=== PATIENT | female | born 1985 | race American Indian/Alaskan Native ===

== ENCOUNTER 2017-01-24 13:05 | Emergency (ER) | payer MEDICAID ==
[2017-01-24 15:22] LABS: Bilirubin,Urine NEG (Negative); Blood,Urine NEG (Negative); Ketones,Urine NEG (Negative); Leukocyte Esterase,Urine NEG (Negative); Mucus,Urine FEW /HPF; Nitrite,Urine NEG (Negative); Protein,Urine <15 mg/dL mg/dL (Negative); RBC,Urine < 1.0 /HPF (0.0-6.0); Urobilinogen,Urine < 2.0 mg/dL (<2.0)
[2017-01-24 15:42] LABS: Basophils % (Auto) 0.3 % (0.0-1.8); Eosinophils % (Auto) 1.6 % (0.0-4.3); Hematocrit 39.5 % (30.3-42.9); Hemoglobin 12.8 gm/dl (10.1-14.3); Mean Corpuscular HGB Conc 32 % (30-34); Mean Corpuscular Hemoglobin 31 pg (28-32); Mean Corpuscular Volume 94 fl (79-97); Platelet Count 169 K/mm3 (140-440); Red Cell Distribution Width 13.4 % (13.2-15.2); White Blood Count 6.3 K/mm3 (4.5-11.0)
[2017-01-24 18:07] LABS: Alanine Aminotransferase 26 units/L (7-56); Albumin 3.8 g/dL (3.9-5); Albumin/Globulin Ratio 1.2 %; Alkaline Phosphatase 48 units/L (35-129); Anion Gap 16 mmol/L; BUN/Creatinine Ratio 13.33; Bilirubin,Total 0.2 mg/dL (0.1-1.2); Blood Urea Nitrogen 8 mg/dL (7-17); Calcium 9.1 mg/dL (8.4-10.2); Carbon Dioxide 21 mmol/L (22-30); Chloride 99.3 mmol/L (98-107); Glucose 85 mg/dL (65-100); Potassium 3.7 mmol/L (3.6-5.0); Sodium 133 mmol/L (137-145); Total Protein 6.9 g/dL (6.3-8.2)
--- NOTE | 2017-01-24 19:40 | Ultrasound Report ---
FINAL REPORT PROCEDURE: US OB \T\lt; = 14 WEEKS FETUS TECHNIQUE: Real-time transabdominal and transvaginal sonography of the uterus, placenta, amniotic fluid, adnexa, and fetus was performed with image documentation. Measurements were obtained to determine age/size. M-mode Doppler was used to document heartbeat. CPT 35296 and 06577 HISTORY: Pain. COMPARISON: No prior studies are available for comparison. FINDINGS: LMP: 11/14/2016. Clinical age: 10 weeks 1 day. EDC: 08/21/2017. CRL: 33.1 mm, which corresponds to a gestational age of: 10 weeks, 1 day. Yolk Sac: Normal. Embryonic Cardiac Activity: 160 beats per minute. Gestational Sac: Normal. Amniotic fluid: Normal. Cervix: Normal. Not measured by technologist. Uterus: 15.5 x 8.1 x 9.7 centimeters. Right Ovary: 3.2 x 2.0 x 3.1 centimeters. 1.9 centimeter hypoechoic complex lesion. Normal flow. Left Ovary: Only visualized transabdominally. 2.3 x 2.0 x 2.8 centimeters. Flow not assessed. Estimated delivery date: 08/21/2017. IMPRESSION: 1. Single live intrauterine gestation at approximately 10 weeks, 1 day. 2. EDC by US 08/21/2017. 3. Complete anatomic survey at 18-20 weeks suggested. At this time complex hypoechoic right ovarian lesion, likely cyst, can be re-evaluated.
--- NOTE | 2017-01-24 19:43 | Ultrasound Report ---
FINAL REPORT PROCEDURE: US OB \T\lt; = 14 WEEKS FETUS TECHNIQUE: Real-time transabdominal and transvaginal sonography of the uterus, placenta, amniotic fluid, adnexa, and fetus was performed with image documentation. Measurements were obtained to determine age/size. M-mode Doppler was used to document heartbeat. CPT 94484 and 15799 HISTORY: Pain. COMPARISON: No prior studies are available for comparison. FINDINGS: LMP: 11/14/2016. Clinical age: 10 weeks 1 day. EDC: 08/21/2017. CRL: 33.1 mm, which corresponds to a gestational age of: 10 weeks, 1 day. Yolk Sac: Normal. Embryonic Cardiac Activity: 160 beats per minute. Gestational Sac: Normal. Amniotic fluid: Normal. Cervix: Normal. Not measured by technologist. Uterus: 15.5 x 8.1 x 9.7 centimeters. Right Ovary: 3.2 x 2.0 x 3.1 centimeters. 1.9 centimeter hypoechoic complex lesion. Normal flow. Left Ovary: Only visualized transabdominally. 2.3 x 2.0 x 2.8 centimeters. Flow not assessed. Estimated delivery date: 08/21/2017. IMPRESSION: 1. Single live intrauterine gestation at approximately 10 weeks, 1 day. 2. EDC by US 08/21/2017. 3. Complete anatomic survey at 18-20 weeks suggested. At this time complex hypoechoic right ovarian lesion, likely complex cyst, can be re-evaluated.
[2017-01-25] MEDS ORDERED: NACL 0.9% 1000 ML 1,000 ML IV ONE (01:58)
[2017-01-25] MEDS ORDERED: TYLENOL PO ONE (02:27)
--- NOTE | 2017-01-25 04:02 | Emergency Department Report ---
ED HPI - General Chief complaint: Urogenital-Female Stated complaint: POSS ECTOPIC Time Seen by Provider: 01/25/17 01:56 Source: patient Mode of arrival: Ambulatory Limitations: No Limitations - History of Present Illness Initial comments: 31-year-old female with a past medical history of ectopic presents to the hospital complaints of and abdominal pain. LMP 11/18/2016. Patient has not yet initiated care but plans to follow-up cycle [facility]. Patient has intermittent sharp lower pelvic pain that radiates from the left to the right. Positive associated whitish and was discharged. Some positive pelvic pressure with urination. Pain moderate in intensity. Worsen palpation. No specific alleviating factors. No reports of fever or vomiting. Patient has a history of ectopic in 2014 treated with methotrexate. This is the patient's fourth . Patient denies vaginal bleeding. - Related Data Previous Rx's Medication Instructions Recorded Last Taken Type Vit W-Ca,Fe,FA(<1 mg) 1 each PO DAILY #30 tablet 01/25/17 Unknown Rx [ Vitamins] Allergies Allergy/AdvReac Type Severity Reaction Status Date / Time No Known Allergies Allergy Verified 01/24/17 13:50 ED Review of Systems ROS: Stated complaint: POSS ECTOPIC Other details as noted in HPI Comment: All other systems reviewed and negative Other: Constitutional: No fevers chills Eyes: No eye pain visual changes ENT: No ear pain or throat pain Neck: Denies pain Respiratory: Denies cough wheezing shortness of breath Cardiovascular: Denies chest pain, palpitations, syncope GI: as per hpi :as per hpi Musculoskeletal: Denies back pain Skin: Denies rash, lesions, erythema Neurologic: Denies headache, numbness, weakness Psychiatric: Denies suicidal ideation, hallucinations ED Past Medical Hx - Past Medical History Hx Psychiatric Treatment: Yes (Anxiety attacks) Additional medical history: heart palpitations. ECTOPIC - Surgical History Past Surgical History?: No Additional Surgical History: ectopic - Social History Smoking Status: Never Smoker Substance Use Type: Alcohol - Medications Home Medications: Home Medications Medication Instructions Recorded Confirmed Last Taken Type Vit W-Ca,Fe,FA(<1 mg) 1 each PO DAILY #30 tablet 01/25/17 Unknown Rx [ Vitamins] ED Physical Exam - General Limitations: No Limitations - Other Other exam information: General: No limitations, patient is alert in no acute distress Head exam: Atraumatic, normocephalic Eyes exam: Normal appearance ENT: Moist mucous membrane, normal oropharynx Neck exam: Normal inspection, full range of motion, no meningismus nontender Respiratory exam: Clear to auscultation bilateral, no wheezes, rales, crackles Cardiovascular: Normal rate and rhythm, normal heart sounds Abdomen: Soft, nondistended, mild superpubic tenderness, with normal bowel sounds, no rebound, or guarding : White vaginal discharge without CMT or adnexal tenderness. Cervical os closed Extremity: Full range of motion normal inspection no deformity Back: Normal Inspection, full range of motion, no tenderness Neurologic: Alert, oriented x3, cranial nerves intact, no motor or sensory deficit Psychiatric: normal affect, normal mood Skin: Warm, dry, intact ED Course Vital Signs 01/24/17 01/25/17 13:53 00:13 Temperature 98.9 F Pulse Rate 94 H 84 Respiratory 17 14 Rate Blood Pressure 124/70 109/75 O2 Sat by Pulse 100 100 Oximetry - Reevaluation(s) Reevaluation #1: 01/25/17 04:00 Patient treated with Tylenol and 1 L normal saline for mild hyponatremia and hypochloremia ED Medical Decision Making - Lab Data Result diagrams: 01/24/17 15:25 01/24/17 17:01 Lab Results 01/24/17 01/24/17 01/24/17 Range/Units 15:25 15:25 17:01 WBC 6.3 (4.5-11.0) K/mm3 RBC 4.20 (3.65-5.03) M/mm3 Hgb 12.8 (10.1-14.3) gm/dl Hct 39.5 (30.3-42.9) % MCV 94 (79-97) fl MCH 31 (28-32) pg MCHC 32 (30-34) % RDW 13.4 (13.2-15.2) % Plt Count 169 (140-440) K/mm3 Lymph % (Auto) 35.2 H (13.4-35.0) % [place] % (Auto) 10.5 H (0.0-7.3) % Eos % (Auto) 1.6 (0.0-4.3) % Baso % (Auto) 0.3 (0.0-1.8) % Lymph # 2.2 (1.2-5.4) K/mm3 [place] # 0.7 (0.0-0.8) K/mm3 Eos # 0.1 (0.0-0.4) K/mm3 Baso # 0.0 (0.0-0.1) K/mm3 Seg Neutrophils % 52.4 (40.0-70.0) % Seg Neutrophils # 3.3 (1.8-7.7) K/mm3 Sodium 133 L (137-145) mmol/L Potassium 3.7 (3.6-5.0) mmol/L Chloride 99.3 (98-107) mmol/L Carbon Dioxide 21 L (22-30) mmol/L Anion Gap 16 mmol/L BUN 8 (7-17) mg/dL Creatinine 0.6 L (0.7-1.2) mg/dL Estimated GFR > 60 ml/min BUN/Creatinine Ratio 13.33 % Glucose 85 (65-100) mg/dL Calcium 9.1 (8.4-10.2) mg/dL Total Bilirubin 0.2 (0.1-1.2) mg/dL AST 17 (5-40) units/L ALT 26 (7-56) units/L Alkaline Phosphatase 48 (35-129) units/L Total Protein 6.9 (6.3-8.2) g/dL Albumin 3.8 L (3.9-5) g/dL Albumin/Globulin Ratio 1.2 % HCG, Quant 04878 H (0-4) mIU/mL Urine Color (Yellow) Urine Turbidity (Clear) Urine pH (5.0-7.0) Ur Specific [place] (1.003-1.030) Urine Protein (Negative) mg/dL Urine Glucose (UA) (Negative) mg/dL Urine Ketones (Negative) mg/dL Urine Blood (Negative) Urine Nitrite (Negative) Urine Bilirubin (Negative) Urine Urobilinogen (<2.0) mg/dL Ur Leukocyte Esterase (Negative) Urine WBC (Auto) (0.0-6.0) /HPF Urine RBC (Auto) (0.0-6.0) /HPF U Epithel Cells (Auto) (0-13.0) /HPF Urine Mucus /HPF 01/24/17 Range/Units Unknown WBC (4.5-11.0) K/mm3 RBC (3.65-5.03) M/mm3 Hgb (10.1-14.3) gm/dl Hct (30.3-42.9) % MCV (79-97) fl MCH (28-32) pg MCHC (30-34) % RDW (13.2-15.2) % Plt Count (140-440) K/mm3 Lymph % (Auto) (13.4-35.0) % [place] % (Auto) (0.0-7.3) % Eos % (Auto) (0.0-4.3) % Baso % (Auto) (0.0-1.8) % Lymph # (1.2-5.4) K/mm3 [place] # (0.0-0.8) K/mm3 Eos # (0.0-0.4) K/mm3 Baso # (0.0-0.1) K/mm3 Seg Neutrophils % (40.0-70.0) % Seg Neutrophils # (1.8-7.7) K/mm3 Sodium (137-145) mmol/L Potassium (3.6-5.0) mmol/L Chloride (98-107) mmol/L Carbon Dioxide (22-30) mmol/L Anion Gap mmol/L BUN (7-17) mg/dL Creatinine (0.7-1.2) mg/dL Estimated GFR ml/min BUN/Creatinine Ratio % Glucose (65-100) mg/dL Calcium (8.4-10.2) mg/dL Total Bilirubin (0.1-1.2) mg/dL AST (5-40) units/L ALT (7-56) units/L Alkaline Phosphatase (35-129) units/L Total Protein (6.3-8.2) g/dL Albumin (3.9-5) g/dL Albumin/Globulin Ratio % HCG, Quant (0-4) mIU/mL Urine Color Yellow (Yellow) Urine Turbidity Clear (Clear) Urine pH 6.0 (5.0-7.0) Ur Specific [place] 1.016 (1.003-1.030) Urine Protein <15 mg/dl (Negative) mg/dL Urine Glucose (UA) Neg (Negative) mg/dL Urine Ketones Neg (Negative) mg/dL Urine Blood Neg (Negative) Urine Nitrite Neg (Negative) Urine Bilirubin Neg (Negative) Urine Urobilinogen < 2.0 (<2.0) mg/dL Ur Leukocyte Esterase Neg (Negative) Urine WBC (Auto) 1.0 (0.0-6.0) /HPF Urine RBC (Auto) < 1.0 (0.0-6.0) /HPF U Epithel Cells (Auto) 2.0 (0-13.0) /HPF Urine Mucus Few /HPF - Radiology Data Radiology results: report reviewed Pelvic/transvaginal ultrasound: Single live IUP 10 weeks. heart 160. Right ovarian lesion likely cyst. - Medical Decision Making Patient received 1 L normal saline for mild hyponatremia. She will be treated with Tylenol for pain. UA is wet prep negative for infection. Patient was treated symptomatically with Tylenol, vitamins, encouraged to follow- up with [facility] to initiate her care. - Differential Diagnosis ectopic, vaginitis, cervicitis , ovarian cyst Critical Care Time: No Critical care attestation.: If time is entered above; I have spent that time in minutes in the direct care of this critically ill patient, excluding procedure time. ED Disposition Clinical Impression: 10 weeks gestation of , Right ovarian cyst, Pelvic pain Disposition: DISCHARGED TO HOME OR SELFCARE Is pt being admited?: No Does the pt Need Aspirin: No Condition: Stable Instructions: Abdominal Pain in (ED), Ovarian Cyst (ED) Additional Instructions: Take the vitamins as prescribed. Take Tylenol as needed for pain. Follow-up with your [facility] doctor. Return if symptoms worsen.Your gonorrhea and chlamydia tests are pending and take approximately 3-4 days result. You may obtain results in medical records with a photo ID. You may also obtain results through the follow-up doctor office via medical record request. Prescriptions: Vit W-Ca,Fe,FA(<1 mg) [ Vitamins] 1 each PO DAILY #30 tablet Referrals: [facility] [Provider Group] - 3-5 Days Time of Disposition: 04:05
[2017-01-25 04:48] VITALS: BP 109/56
== END 2017-01-25 04:56 | disposition home or self-care (01) ==
LOC: ED 13:05
DX: O26.891 Other specified pregnancy related conditions, first trimester (principal); N83.201 Unspecified ovarian cyst, right side; F41.9 Anxiety disorder, unspecified; Z3A.10 10 weeks gestation of pregnancy
CPT/HCPCS: 36415; 76801; 76817; 80053; 81001; 84702; 85025; 87210; 87591; 96360; 99285; J7030

== ENCOUNTER 2017-08-24 01:56 | Inpatient (IN) | payer MEDICAID ==
[2017-08-24] MEDS: LACTATED RINGERS 1,000 ML IV SCH ×4 (03:35→07:26)
[2017-08-24] MEDS ORDERED: POLYCILLIN/NS 2 GM/100 ML 2 GM/100 ML BAG IV ONE ×2 (03:35→03:36)
[2017-08-24] MEDS ORDERED: LACTATED RINGERS 1,000 ML ONE ×2 (03:36)
[2017-08-24] MEDS ORDERED: STADOL ONE (04:09)
[2017-08-24 04:15] LABS: Hematocrit 31.9 % (30.3-42.9); Hemoglobin 10.3 gm/dl (10.1-14.3); Mean Corpuscular HGB Conc 32 % (30-34); Mean Corpuscular Hemoglobin 27 pg (28-32); Mean Corpuscular Volume 85 fl (79-97); Platelet Count 122 K/mm3 (140-440); Red Blood Count 3.76 M/mm3 (3.65-5.03); Red Cell Distribution Width 17.1 % (13.2-15.2); White Blood Count 6.2 K/mm3 (4.5-11.0)
[2017-08-24] MEDS ORDERED: XYLOCAINE 2% INFILTRATI ONE (04:30)
[2017-08-24] MEDS ORDERED: BRETHINE SUB-Q PRN (04:30)
[2017-08-24] MEDS ORDERED: STADOL IV PRN (04:30)
[2017-08-24] MEDS ORDERED: ePHEDrine SULFATE IV PRN ×2 (04:30→05:49)
[2017-08-24] MEDS ORDERED: BRETHINE IVP PRN (04:30)
[2017-08-24] MEDS ORDERED: MINERAL OIL PO PRN (04:30)
[2017-08-24] MEDS ORDERED: PITOCin/NS 20 UNIT/1000ML DRIP 20 UNITS/1,000 ML BAG IV SCH (05:00)
--- NOTE | 2017-08-24 05:05 | History and Physical Report ---
History of Present Illness Date of examination: 08/24/17 Date of admission: 08/24/17 03:12 Chief complaint: Intense Labor Pains History of present illness: Late entry to care, co-mansoor with [facility] due to morbid obesity. course complicated by chest pain, wrist pain, and +HSV II. Past History Past Medical History: no pertinent history Past Surgical History: no surgical history [employer] History: chlamydia, herpes Family/Genetic History: none Social history: no significant social history, single - Obstetrical History Expected Date of Delivery: 08/21/17 Actual Gestation: 40 Week(s) 3 Day(s) : 4 Para: 2 Hx # Term Pregnancies: 2 Spontaneous Abortions: 1 Number of Living Children: 2 #1 Infant Gender: Female year: ,[birth year] Birthweight: 3.345 kg Method of Delivery: Vaginal Gestational age at delivery: 40 #2 Infant Gender: Male year: ,[birth year] Birthweight: 3.544 kg Method of Delivery: Vaginal Gestational age at delivery: 40 Medications and Allergies Allergies Allergy/AdvReac Type Severity Reaction Status Date / Time No Known Allergies Allergy Verified 01/24/17 13:50 Home Medications Medication Instructions Recorded Confirmed Last Taken Type Vit Calc,Iron,Folic 1 each PO DAILY #30 tablet 01/25/17 Unknown Rx [ Vitamins] Active Meds: Active Medications Butorphanol Tartrate (Stadol) 2 mg IV Q2H PRN PRN Reason: Pain , Severe (7-10) Last Admin: 08/24/17 04:23 Dose: 2 mg Lactated Ringer's (Lactated Ringers) 1,000 mls @ 125 mls/hr IV DIRECT KAREN Last Admin: 08/24/17 03:35 Dose: 125 mls/hr Oxytocin/Sodium Chloride (Pitocin/Ns 20 Unit/1000ml Drip) 20 units in 1,000 mls @ 125 mls/hr IV DIRECT KAREN Oxytocin/Sodium Chloride (Pitocin/Ns 30 Unit/500ml) 30 units in 500 mls @ 4 mls /hr IV TITR KAREN PRN Reason: Protocol Mineral Oil (Mineral Oil) 30 ml PO QHS PRN PRN Reason: Constipation Review of Systems All systems: negative - Vital Signs Vital signs: Vital Signs Pulse BP Pulse Ox 70 113/71 95 08/24/17 02:15 08/24/17 02:15 08/24/17 02:15 Temp Pulse Resp BP Pulse Ox 98.1 F 76 20 110/57 98 08/24/17 03:20 08/24/17 04:13 08/24/17 04:23 08/24/17 03:32 08/24/17 04:13 - Obstetrical FHR: category 1 Uterine Contraction Monitor Mode: Internal Cervical Dilatation: 5.5 (Large amount of brown meconium stained fluids upon AROM at 0425) Cervical Effacement Percentage: 70 station: -2 Uterine Contraction Frequency (min): 4-6 Uterine Contraction Pattern: Regular Uterine Tone Measurement Phase: Resting Uterine Contraction Intensity: Moderate Results Result Diagrams: 08/24/17 03:30 Abnormal lab results 08/24/17 Range/Units 03:30 MCH 27 L (28-32) pg RDW 17.1 H (13.2-15.2) % Plt Count 122 L (140-440) K/mm3 All other labs normal. Assessment and Plan A: IUP @40 3/7 Weeks Category I Tracing Active Labor GBS Positive P: Admit to L&D per routine orders AROM IUPC GBS Prophylaxis Pitocin Augmentation Prepare for Epidural Anesthesia
[2017-08-24] MEDS ORDERED: ePHEDrine SULFATE ONE (05:17)
[2017-08-24] MEDS ORDERED: NARCAN 2 MG/2 ML IV PRN (05:49)
--- NOTE | 2017-08-24 05:49 | Anesthesia Consultation ---
Anesthesia Consult and Med Hx Date of service: 08/24/17 - Airway Anesthetic Teeth Evaluation: Good ROM Head & Neck: Adequate Mental/Hyoid Distance: Adequate Mallampati Class: Class II Intubation Access Assessment: Probably Good - Pulmonary Exam CTA: Yes - Cardiac Exam Cardiac Exam: RRR - Pre-Operative Health Status ASA Pre-Surgery Classification: ASA2 Proposed Anesthetic Plan: Epidural, Spinal - Pulmonary Hx Asthma: No Hx Pneumonia: No - Cardiovascular System Hx Hypertension: No - Central Nervous System Hx Seizures: No Hx Psychiatric Problems: No - Endocrine Hx Renal Disease: No Hx End Stage Renal Disease: No Hx Hypothyroidism: No Hx Hyperthyroidism: No - Hematic Hx Anemia: No Hx Sickle Cell Disease: No - Other Systems Hx Alcohol Use: Yes Hx Obesity: Yes - Additional Comments Anesthesia Medical History Comments: IUP
[2017-08-24] MEDS ORDERED: fentaNYL-BUPIV 2 MCG/ML-0.125% 200 MCG/100 ML BAG EPIDURAL SCH (06:00)
[2017-08-24] MEDS: PITOCin/NS 30 UNIT/500ML 30 UNITS/500 ML BAG IV SCH ×3 (06:18→10:47)
[2017-08-24] MEDS ORDERED: NACL 0.9% 1000 ML 1,000 ML VG SCH (07:00)
[2017-08-24] MEDS: POLYCILLIN/NS 1 GM/50 ML 1 GM/50 ML BAG IV SCH ×2 (07:44→11:14)
--- NOTE | 2017-08-24 10:34 | Progress Note ---
Assessment and Plan A: IUP @40 3/7 Weeks Category II Tracing Active Labor GBS Positive P: Continue GBS Prophylaxis Re-start Pitocin Augmentation Multiple Maternal Position Changes Subjective - Subjective Date of service: 08/24/17 Interval history: Late entry to care, co-mansoor with [facility] due to morbid obesity. course complicated by chest pain, wrist pain, and +HSV II. Patient reports: contractions Objective - Vital Signs Vital Signs: Vital Signs - 12hr 08/24/17 08/24/17 08/24/17 02:15 02:20 02:25 Temperature Pulse Rate 70 74 73 Respiratory Rate Blood Pressure 113/71 Blood Pressure [Left] O2 Sat by Pulse 95 98 98 Oximetry 08/24/17 08/24/17 08/24/17 02:30 02:35 02:40 Temperature Pulse Rate 70 75 76 Respiratory Rate Blood Pressure Blood Pressure [Left] O2 Sat by Pulse 98 98 97 Oximetry 08/24/17 08/24/17 08/24/17 02:45 02:50 02:55 Temperature Pulse Rate 68 67 73 Respiratory Rate Blood Pressure Blood Pressure [Left] O2 Sat by Pulse 97 97 99 Oximetry 08/24/17 08/24/17 08/24/17 03:00 03:05 03:10 Temperature Pulse Rate 60 66 64 Respiratory Rate Blood Pressure Blood Pressure [Left] O2 Sat by Pulse 98 97 97 Oximetry 08/24/17 08/24/17 08/24/17 03:20 03:32 03:33 Temperature 98.1 F Pulse Rate 73 73 78 Respiratory 20 Rate Blood Pressure 110/57 Blood Pressure [Left] O2 Sat by Pulse 99 Oximetry 08/24/17 08/24/17 08/24/17 03:38 03:43 03:48 Temperature Pulse Rate 86 82 73 Respiratory Rate Blood Pressure Blood Pressure [Left] O2 Sat by Pulse 95 99 97 Oximetry 08/24/17 08/24/17 08/24/17 03:53 03:58 04:03 Temperature Pulse Rate 78 77 79 Respiratory Rate Blood Pressure Blood Pressure [Left] O2 Sat by Pulse 97 97 98 Oximetry 08/24/17 08/24/17 08/24/17 04:08 04:13 04:23 Temperature Pulse Rate 73 76 Respiratory 20 Rate Blood Pressure Blood Pressure [Left] O2 Sat by Pulse 97 98 Oximetry 08/24/17 08/24/17 08/24/17 04:57 05:25 05:27 Temperature 97.9 F Pulse Rate 60 82 Respiratory 22 Rate Blood Pressure 114/55 Blood Pressure [Left] O2 Sat by Pulse 88 99 Oximetry 08/24/17 08/24/17 08/24/17 05:32 05:36 05:37 Temperature Pulse Rate 86 79 69 Respiratory Rate Blood Pressure 113/74 Blood Pressure [Left] O2 Sat by Pulse 99 99 Oximetry 08/24/17 08/24/17 08/24/17 05:40 05:42 05:44 Temperature Pulse Rate 76 77 88 Respiratory Rate Blood Pressure 116/64 121/68 137/69 Blood Pressure [Left] O2 Sat by Pulse 99 Oximetry 08/24/17 08/24/17 08/24/17 05:46 05:47 05:48 Temperature Pulse Rate 76 79 80 Respiratory Rate Blood Pressure 116/60 118/62 Blood Pressure [Left] O2 Sat by Pulse 98 Oximetry 08/24/17 08/24/17 08/24/17 05:50 05:52 05:56 Temperature Pulse Rate 83 89 80 Respiratory Rate Blood Pressure 128/62 126/58 Blood Pressure [Left] O2 Sat by Pulse 98 Oximetry 08/24/17 08/24/17 08/24/17 05:57 05:58 06:00 Temperature Pulse Rate 86 88 78 Respiratory Rate Blood Pressure 124/60 120/61 Blood Pressure [Left] O2 Sat by Pulse 96 Oximetry 08/24/17 08/24/17 08/24/17 06:02 06:04 06:05 Temperature 97.4 F L Pulse Rate 94 H 78 Respiratory 18 Rate Blood Pressure 117/58 109/53 Blood Pressure [Left] O2 Sat by Pulse 97 Oximetry 08/24/17 08/24/17 08/24/17 06:06 06:07 06:08 Temperature Pulse Rate 75 76 75 Respiratory Rate Blood Pressure 124/58 110/56 Blood Pressure [Left] O2 Sat by Pulse 98 Oximetry 08/24/17 08/24/17 08/24/17 06:10 06:12 06:17 Temperature Pulse Rate 80 92 H 93 H Respiratory Rate Blood Pressure 112/59 Blood Pressure [Left] O2 Sat by Pulse 98 99 Oximetry 08/24/17 08/24/17 08/24/17 06:22 06:27 06:32 Temperature Pulse Rate 84 69 70 Respiratory Rate Blood Pressure 101/54 Blood Pressure [Left] O2 Sat by Pulse 99 97 97 Oximetry 08/24/17 08/24/17 08/24/17 06:36 06:37 06:42 Temperature Pulse Rate 87 82 72 Respiratory Rate Blood Pressure Blood Pressure [Left] O2 Sat by Pulse 64 L 100 100 Oximetry 08/24/17 08/24/17 08/24/17 06:44 06:47 06:49 Temperature Pulse Rate 65 58 L 75 Respiratory Rate Blood Pressure 112/58 Blood Pressure [Left] O2 Sat by Pulse 100 92 Oximetry 08/24/17 08/24/17 08/24/17 06:52 06:55 06:57 Temperature Pulse Rate 64 77 64 Respiratory Rate Blood Pressure 103/54 Blood Pressure [Left] O2 Sat by Pulse 100 100 Oximetry 08/24/17 08/24/17 08/24/17 06:59 07:02 07:05 Temperature Pulse Rate 68 91 H 81 Respiratory Rate Blood Pressure 93/52 95/51 121/59 Blood Pressure [Left] O2 Sat by Pulse 100 Oximetry 08/24/17 08/24/17 08/24/17 07:07 07:09 07:11 Temperature Pulse Rate 86 90 81 Respiratory Rate Blood Pressure 111/58 105/58 103/55 Blood Pressure [Left] O2 Sat by Pulse 100 Oximetry 08/24/17 08/24/17 08/24/17 07:12 07:13 07:15 Temperature Pulse Rate 75 68 87 Respiratory Rate Blood Pressure 99/55 102/51 Blood Pressure [Left] O2 Sat by Pulse 100 Oximetry 08/24/17 08/24/17 08/24/17 07:17 07:19 07:21 Temperature 96.5 F L Pulse Rate 84 76 83 Respiratory 16 Rate Blood Pressure 105/55 101/56 95/51 Blood Pressure 100/57 [Left] O2 Sat by Pulse 10 L Oximetry 08/24/17 08/24/17 08/24/17 07:22 07:23 07:25 Temperature Pulse Rate 70 73 76 Respiratory Rate Blood Pressure 100/57 103/58 Blood Pressure [Left] O2 Sat by Pulse 100 Oximetry 08/24/17 08/24/17 08/24/17 07:27 07:29 07:31 Temperature Pulse Rate 82 83 77 Respiratory Rate Blood Pressure 103/56 108/57 106/55 Blood Pressure [Left] O2 Sat by Pulse 100 Oximetry 08/24/17 08/24/17 08/24/17 07:32 07:33 07:35 Temperature Pulse Rate 78 83 83 Respiratory Rate Blood Pressure 103/59 96/54 Blood Pressure [Left] O2 Sat by Pulse 100 Oximetry 08/24/17 08/24/17 08/24/17 07:37 07:39 07:41 Temperature Pulse Rate 94 H 90 88 Respiratory Rate Blood Pressure 108/58 105/61 107/60 Blood Pressure [Left] O2 Sat by Pulse 100 Oximetry 08/24/17 08/24/17 08/24/17 07:42 07:43 07:45 Temperature Pulse Rate 71 77 76 Respiratory Rate Blood Pressure 106/58 108/55 Blood Pressure [Left] O2 Sat by Pulse 100 Oximetry 08/24/17 08/24/17 08/24/17 07:47 07:49 07:51 Temperature Pulse Rate 92 H 82 82 Respiratory Rate Blood Pressure 99/50 103/58 105/57 Blood Pressure [Left] O2 Sat by Pulse 100 Oximetry 08/24/17 08/24/17 08/24/17 07:52 07:53 07:55 Temperature Pulse Rate 78 76 85 Respiratory Rate Blood Pressure 106/58 96/52 Blood Pressure [Left] O2 Sat by Pulse 100 Oximetry 08/24/17 08/24/17 08/24/17 07:57 07:59 08:01 Temperature Pulse Rate 69 91 H 81 Respiratory Rate Blood Pressure 98/53 102/50 103/59 Blood Pressure [Left] O2 Sat by Pulse 100 Oximetry 08/24/17 08/24/17 08/24/17 08:02 08:03 08:05 Temperature Pulse Rate 100 H 105 H 81 Respiratory Rate Blood Pressure 99/56 112/56 Blood Pressure [Left] O2 Sat by Pulse 99 Oximetry 08/24/17 08/24/17 08/24/17 08:07 08:09 08:11 Temperature Pulse Rate 73 95 H 89 Respiratory Rate Blood Pressure 103/58 94/57 99/63 Blood Pressure [Left] O2 Sat by Pulse 100 Oximetry 08/24/17 08/24/17 08/24/17 08:12 08:13 08:15 Temperature Pulse Rate 76 77 70 Respiratory Rate Blood Pressure 100/56 103/56 Blood Pressure [Left] O2 Sat by Pulse 100 Oximetry 08/24/17 08/24/17 08/24/17 08:17 08:19 08:21 Temperature Pulse Rate 73 85 90 Respiratory Rate Blood Pressure 102/58 91/54 101/59 Blood Pressure [Left] O2 Sat by Pulse 100 Oximetry 08/24/17 08/24/17 08/24/17 08:22 08:23 08:25 Temperature Pulse Rate 62 69 85 Respiratory Rate Blood Pressure 106/55 102/59 Blood Pressure [Left] O2 Sat by Pulse 100 Oximetry 08/24/17 08/24/17 08/24/17 08:27 08:29 08:31 Temperature Pulse Rate 93 H 83 70 Respiratory Rate Blood Pressure 100/55 105/58 103/55 Blood Pressure [Left] O2 Sat by Pulse 100 Oximetry 08/24/17 08/24/17 08/24/17 08:32 08:33 08:35 Temperature Pulse Rate 85 99 H 90 Respiratory Rate Blood Pressure 116/56 108/56 Blood Pressure [Left] O2 Sat by Pulse 100 Oximetry 08/24/17 08/24/17 08/24/17 08:37 08:39 08:41 Temperature Pulse Rate 90 72 63 Respiratory Rate Blood Pressure 100/54 111/56 102/58 Blood Pressure [Left] O2 Sat by Pulse 99 Oximetry 08/24/17 08/24/17 08/24/17 08:42 08:43 08:45 Temperature Pulse Rate 75 80 72 Respiratory Rate Blood Pressure 103/58 104/58 Blood Pressure [Left] O2 Sat by Pulse 100 Oximetry 08/24/17 08/24/17 08/24/17 08:47 08:49 08:51 Temperature Pulse Rate 66 78 72 Respiratory Rate Blood Pressure 99/57 97/55 100/58 Blood Pressure [Left] O2 Sat by Pulse 100 Oximetry 08/24/17 08/24/17 08/24/17 08:52 08:53 08:55 Temperature Pulse Rate 65 72 75 Respiratory Rate Blood Pressure 102/57 104/60 Blood Pressure [Left] O2 Sat by Pulse 100 Oximetry 08/24/17 08/24/17 08/24/17 08:57 08:59 09:01 Temperature Pulse Rate 77 67 71 Respiratory Rate Blood Pressure 101/58 99/58 100/56 Blood Pressure [Left] O2 Sat by Pulse 100 Oximetry 08/24/17 08/24/17 08/24/17 09:02 09:03 09:05 Temperature Pulse Rate 62 61 74 Respiratory Rate Blood Pressure 97/52 93/50 Blood Pressure [Left] O2 Sat by Pulse 100 Oximetry 08/24/17 08/24/17 08/24/17 09:07 09:09 09:11 Temperature Pulse Rate 66 61 67 Respiratory Rate Blood Pressure 96/52 98/57 95/54 Blood Pressure [Left] O2 Sat by Pulse 100 Oximetry 08/24/17 08/24/17 08/24/17 09:12 09:13 09:15 Temperature Pulse Rate 70 65 63 Respiratory Rate Blood Pressure 99/58 96/51 Blood Pressure [Left] O2 Sat by Pulse 100 Oximetry 08/24/17 08/24/17 08/24/17 09:17 09:19 09:21 Temperature Pulse Rate 67 64 69 Respiratory Rate Blood Pressure 98/54 94/53 97/54 Blood Pressure [Left] O2 Sat by Pulse 100 Oximetry 08/24/17 08/24/17 08/24/17 09:22 09:23 09:25 Temperature Pulse Rate 70 64 90 Respiratory Rate Blood Pressure 102/56 101/58 Blood Pressure [Left] O2 Sat by Pulse 100 Oximetry 08/24/17 08/24/17 08/24/17 09:27 09:30 09:31 Temperature Pulse Rate 76 77 75 Respiratory Rate Blood Pressure 81/51 105/58 103/58 Blood Pressure [Left] O2 Sat by Pulse 100 Oximetry 08/24/17 08/24/17 08/24/17 09:32 09:33 09:35 Temperature Pulse Rate 67 68 71 Respiratory Rate Blood Pressure 105/52 103/52 Blood Pressure [Left] O2 Sat by Pulse 100 Oximetry 08/24/17 08/24/17 08/24/17 09:37 09:39 09:41 Temperature Pulse Rate 72 57 L 65 Respiratory Rate Blood Pressure 100/55 98/53 99/56 Blood Pressure [Left] O2 Sat by Pulse 100 Oximetry 08/24/17 08/24/17 08/24/17 09:42 09:43 09:45 Temperature Pulse Rate 69 69 83 Respiratory Rate Blood Pressure 107/58 106/58 Blood Pressure [Left] O2 Sat by Pulse 100 Oximetry 08/24/17 08/24/17 08/24/17 09:47 09:49 09:51 Temperature Pulse Rate 66 73 67 Respiratory Rate Blood Pressure 103/58 99/56 101/55 Blood Pressure [Left] O2 Sat by Pulse 100 Oximetry 08/24/17 08/24/17 08/24/17 09:52 09:53 09:55 Temperature Pulse Rate 72 79 69 Respiratory Rate Blood Pressure 103/55 103/59 Blood Pressure [Left] O2 Sat by Pulse 100 Oximetry 08/24/17 08/24/17 08/24/17 09:57 09:59 10:01 Temperature Pulse Rate 68 72 71 Respiratory Rate Blood Pressure 94/55 99/53 88/51 Blood Pressure [Left] O2 Sat by Pulse 100 Oximetry 08/24/17 08/24/17 08/24/17 10:02 10:03 10:05 Temperature Pulse Rate 86 78 68 Respiratory Rate Blood Pressure 98/57 100/56 Blood Pressure [Left] O2 Sat by Pulse 100 Oximetry 08/24/17 08/24/17 08/24/17 10:07 10:09 10:11 Temperature Pulse Rate 82 83 67 Respiratory Rate Blood Pressure 100/53 103/56 94/51 Blood Pressure [Left] O2 Sat by Pulse 100 Oximetry 08/24/17 08/24/17 08/24/17 10:12 10:17 10:22 Temperature Pulse Rate 96 H 89 75 Respiratory Rate Blood Pressure Blood Pressure [Left] O2 Sat by Pulse 100 100 99 Oximetry 08/24/17 08/24/17 08/24/17 10:27 10:28 10:32 Temperature Pulse Rate 87 94 H 66 Respiratory Rate Blood Pressure 112/64 Blood Pressure [Left] O2 Sat by Pulse 99 100 Oximetry - Exam Breasts: normal Cardiovascular: Regular rate Lungs: Normal air movement Abdomen: Present: normal appearance Uterus: Present: fundal height above umbilicus FHR: category 2 FHR comments: FHR: 134, Moderate varability, +accels, +early decels Cervical Dilatation: 8 Cervical Effacement Percentage: 80 station: -1 Uterine Contraction Frequency (min): 4-7 Uterine Contraction Pattern: Irregular Uterine Tone Measurement Phase: Resting Uterine Contraction Intensity: Moderate Extremities: normal - Labs Labs: Abnormal Labs 08/24/17 03:30 MCH 27 L RDW 17.1 H Plt Count 122 L Laboratory Results - last 24 hr 08/24/17 08/24/17 03:30 03:30 WBC 6.2 RBC 3.76 Hgb 10.3 Hct 31.9 MCV 85 MCH 27 L MCHC 32 RDW 17.1 H Plt Count 122 L Blood Type O POSITIVE Antibody Screen Negative
[2017-08-24] MEDS ORDERED: DULCOLAX PR PRN (12:52)
[2017-08-24] MEDS ORDERED: BENADRYL PO PRN (12:52)
[2017-08-24] MEDS ORDERED: LANSINOH TP PRN (12:52)
[2017-08-24] MEDS ORDERED: MILK OF MAGNESIA PO PRN (12:52)
[2017-08-24] MEDS ORDERED: SODIUM CHLORIDE FLUSH SYRINGE 10 ML IV NR (13:00)
--- NOTE | 2017-08-24 13:00 | Procedure Note ---
OB Delivery Note - Delivery Date of Delivery: 08/24/17 (1218) Surgeon: FERMIN FORD Estimated blood loss: other (250) - Vaginal Delivery presentation: vertex Delivery position: OA Intrapartum events: meconium, mult. late decelerations, mult.variable deceleratio Delivery induction: none Delivery augmentation: rupture of membranes, pitocin Delivery monitor: internal FHT, internal uterine Route of delivery: Delivery placenta: spontaneous Delivery cord: 3 umbilical vessels Delivery laceration: 1st degree Delivery repair: vicryl Anesthesia: epidural Delivery comments: of a live 7'14 female infant over 1st degree vaginal lacerations under epidural anesthesia with Apgars of 7 and 9 at 1218 on 08/24/2017. not stimulated; Cord clamped and cut by MARA Ford, and handed directly to awaiting NICU/RESP team due to thick meconium stained fluids. Spontaneous delivery of placenta complete and intact with [place] side presenting @ 1223. Fundus is firm and midline located 4 below the U. Lochia is scant. Vaginal lacerations repaired with 2-0 Vicryl. GBS Positive treated x 3 doses. Cord blood collected. Placenta to pathology. - A at 1 minute: 7 at 5 minutes: 9 Infant Gender: Female (7'14)
[2017-08-24] MEDS: MOTRIN PO SCH (19:52)
[2017-08-24] MEDS: NORCO 5/325 PO PRN (20:54)
[2017-08-24] MEDS: TUCKS PAD TP PRN (23:00)
[2017-08-25 00:39] LABS: Hematocrit 28.8 % (30.3-42.9); Hemoglobin 9.5 gm/dl (10.1-14.3)
[2017-08-25] MEDS: MOTRIN PO SCH ×5 (02:00→23:42)
[2017-08-25] MEDS: NORCO 5/325 PO PRN ×4 (04:28→23:42)
--- NOTE | 2017-08-25 07:30 | Progress Note ---
Assessment and Plan A: day 1 S/P spontaneous vaginal delivery. P: Anticipate discharge tomorrow AM. Subjective - Subjective Date of service: 08/25/17 Principal diagnosis: day 1 S/P spontaneous vaginal delivery Interval history: day 1 S/P . Doing well. Patient is voiding without difficulty and ambulating well. She reports small amount of lochia and not large clots. She is tolerating a regular diet without nausea or vomiting. Patient denies headache, cough, chest pain, shortness of breath, abdominal pain, leg pain, or heavy vaginal bleeding. Patient is planning to use Nexplanon for contraception at 6-8 weeks . Patient reports: appetite normal, voiding normally, pain well controlled, ambulating normally [place]: doing well Objective - Vital Signs Latest vital signs: Vital Signs Temp Pulse Resp BP BP Pulse Ox 08/25/17 04:28 20 08/25/17 00:40 98.4 F 79 18 116/53 08/24/17 20:54 20 08/24/17 20:00 99.5 F 88 18 113/50 08/24/17 15:00 98.4 F 86 20 111/74 08/24/17 13:42 88 121/68 08/24/17 13:39 55 L 87 08/24/17 13:27 80 114/61 08/24/17 13:25 63 74 L 08/24/17 13:21 98.3 F 97 H 18 113/60 08/24/17 13:17 100 H 113/60 08/24/17 13:14 82 L 08/24/17 13:12 97 H 116/63 08/24/17 13:02 96 H 117/63 08/24/17 13:01 89 121/61 77 L 08/24/17 13:00 96 H 18 134/69 117/63 08/24/17 12:54 67 79 L 08/24/17 12:47 95 H 98 08/24/17 12:42 95 H 107/61 107/61 97 08/24/17 12:37 88 97 08/24/17 12:32 91 H 98 08/24/17 12:30 95 H 112/66 08/24/17 12:27 98 H 98 08/24/17 12:22 75 99 08/24/17 12:17 83 70 L 08/24/17 12:12 87 99 08/24/17 12:11 66 76 L 08/24/17 12:07 79 100 08/24/17 12:02 85 100 08/24/17 11:57 65 100 08/24/17 11:56 68 113/69 17 11:52 74 100 08/24/17 11:47 69 100 08/24/17 11:42 71 100 08/24/17 11:41 69 110/70 08/24/17 11:37 68 100 08/24/17 11:35 98.7 F 71 18 108/67 100 08/24/17 11:32 70 100 08/24/17 11:27 76 100 08/24/17 11:26 83 108/67 08/24/17 11:22 76 100 08/24/17 11:17 66 100 08/24/17 11:13 65 93/54 08/24/17 11:12 67 100 08/24/17 11:07 69 100 08/24/17 11:02 75 99 08/24/17 10:57 70 100/54 100 08/24/17 10:52 68 100 08/24/17 10:47 62 100 08/24/17 10:42 79 100 08/24/17 10:41 95 H 107/62 08/24/17 10:37 69 100 08/24/17 10:32 66 100 08/24/17 10:28 94 H 112/64 08/24/17 10:27 87 99 08/24/17 10:22 75 99 08/24/17 10:17 89 100 08/24/17 10:12 96 H 100 08/24/17 10:11 67 94/51 08/24/17 10:09 83 103/56 08/24/17 10:07 82 100/53 100 08/24/17 10:05 68 100/56 08/24/17 10:03 78 98/57 08/24/17 10:02 86 100 08/24/17 10:01 71 88/51 08/24/17 09:59 72 99/53 08/24/17 09:57 68 94/55 100 08/24/17 09:55 69 103/59 17 09:53 79 103/55 08/24/17 09:52 72 100 10/19/17 09:51 67 101/55 19/17 09:49 73 99/56 19/17 09:47 66 103/58 100 19/17 09:45 83 106/58 08/24/17 09:43 69 107/58 08/24/17 09:42 69 100 08/24/17 09:41 65 99/56 08/24/17 09:39 57 L 98/53 08/24/17 09:37 72 100/55 100 08/24/17 09:35 71 103/52 08/24/17 09:33 68 105/52 08/24/17 09:32 67 100 08/24/17 09:31 75 103/58 08/24/17 09:30 77 105/58 08/24/17 09:27 76 81/51 100 08/24/17 09:25 90 101/58 08/24/17 09:23 64 102/56 08/24/17 09:22 70 100 17 09:21 69 97/54 17 09:19 64 94/53 17 09:17 67 98/54 100 08/24/17 09:15 63 96/51 08/24/17 09:13 65 99/58 17 09:12 70 100 17 09:11 67 95/54 17 09:09 61 98/57 17 09:07 66 96/52 100 17 09:05 74 93/50 08/24/17 09:03 61 97/52 17 09:02 62 100 17 09:01 71 100/56 08/24/17 08:59 67 99/58 08/24/17 08:57 77 101/58 100 08/24/17 08:55 75 104/60 08/24/17 08:53 72 102/57 08/24/17 08:52 65 100 08/24/17 08:51 72 100/58 08/24/17 08:49 78 97/55 08/24/17 08:47 66 99/57 100 08/24/17 08:45 72 104/58 08/24/17 08:43 80 103/58 08/24/17 08:42 75 100 08/24/17 08:41 63 102/58 08/24/17 08:39 72 111/56 08/24/17 08:37 90 100/54 99 08/24/17 08:35 90 108/56 08/24/17 08:33 99 H 116/56 08/24/17 08:32 85 100 08/24/17 08:31 70 103/55 08/24/17 08:29 83 105/58 08/24/17 08:27 93 H 100/55 100 08/24/17 08:25 85 102/59 08/24/17 08:23 69 106/55 08/24/17 08:22 62 100 08/24/17 08:21 90 101/59 08/24/17 08:19 85 91/54 08/24/17 08:17 73 102/58 100 08/24/17 08:15 70 103/56 08/24/17 08:13 77 100/56 08/24/17 08:12 76 100 08/24/17 08:11 89 99/63 08/24/17 08:09 95 H 94/57 08/24/17 08:07 73 103/58 100 08/24/17 08:05 81 112/56 08/24/17 08:03 105 H 99/56 08/24/17 08:02 100 H 99 08/24/17 08:01 81 103/59 08/24/17 07:59 91 H 102/50 08/24/17 07:57 69 98/53 100 08/24/17 07:55 85 96/52 08/24/17 07:53 76 106/58 08/24/17 07:52 78 100 08/24/17 07:51 82 105/57 08/24/17 07:49 82 103/58 08/24/17 07:47 92 H 99/50 100 08/24/17 07:45 76 108/55 08/24/17 07:43 77 106/58 08/24/17 07:42 71 100 08/24/17 07:41 88 107/60 08/24/17 07:39 90 105/61 08/24/17 07:37 94 H 108/58 100 08/24/17 07:35 83 96/54 08/24/17 07:33 83 103/59 08/24/17 07:32 78 100 Intake and Output 08/24/17 08/24/17 08/25/17 15:59 23:59 07:59 Intake Total 67.033 600 Output Total 1300 1200 800 Balance -1232.967 -600 -800 Intake: IV 67.033 PITOCin/NS 30 UNIT/500ML 17.033 30 units In 500 ml @ 4 mls/hr IV TITR KAREN Rx#: [id number] POLYCILLIN/NS 1 GM/50 ML 50 1 gm In 50 ml @ 100 mls/ hr IV Q4H KAREN Rx#: [id number] Intake, Free Water 600 Output: Urine 1300 1200 800 Indwelling Catheter 1300 Void 1200 800 Other: Total, Output Amount 1300 800 800 Estimated Blood Loss 250 - Exam Breasts: Present: deferred Cardiovascular: Present: Regular rate, Normal S1, Normal S2 Lungs: Present: Clear to auscultation Abdomen: Present: normal appearance, soft, normal bowel sounds. Absent: distention, tenderness, guarding, rigidity Uterus: Present: normal, firm, fundal height below umbilicus. Absent: bogginess , tenderness Extremities: Present: normal. Absent: tenderness, edema - Labs Labs: Abnormal lab results 08/25/17 Range/Units 00:25 Hgb 9.5 L (10.1-14.3) gm/dl Hct 28.8 L (30.3-42.9) %
[2017-08-25] MEDS: FEOSOL PO SCH ×2 (11:41→23:42)
[2017-08-25] MEDS ORDERED: DERMOPLAST TP PRN (12:54)
[2017-08-26] MEDS: NORCO 5/325 PO PRN ×2 (05:24→17:09)
[2017-08-26] MEDS: MOTRIN PO SCH ×3 (05:24→17:10)
--- NOTE | 2017-08-26 10:06 | Progress Note ---
Assessment and Plan A: day 2 S/P . Anemia. P: Discharge patient to home this evening. Discussed discharge instructions and warning signs in detail with patient. Advised patient to continue her iron supplements at home. Advised patient to avoid IC and lifting and housework for 6 weeks and to avoid driving for 1 month. Advised patient she needs to call [facility] and make a 6 week appointment for exam. Patient voiced understanding of all above instructions. Subjective - Subjective Date of service: 08/26/17 Principal diagnosis: day 2 S/P spontaneous vaginal delivery Interval history: day 2 S/P spontaneous vaginal delivery. Patient is . She is feeling well and desires discharge to home this evening. Patient is ambulating well, voiding without difficulty, and tolerating a regular diet. She reports a small amount of lochia and no large clots. Patient denies headache, visual disturbance, cough, shortness of breath, chest pain, dizziness, weakness , abdominal pain, nausea or vomiting, leg pain, heavy vaginal bleeding, or symptoms of depression. Patient plans to have Nexplanon for contraception at 6-8 weeks . Patient reports: appetite normal, voiding normally, pain well controlled, flatus , ambulating normally [place]: doing well Objective - Vital Signs Latest vital signs: Vital Signs Temp Pulse Resp BP 08/26/17 08:50 98.2 F 57 L 20 88/45 08/26/17 01:10 97.9 F 77 20 107/67 08/25/17 16:41 98.2 F 84 20 106/60 08/25/17 12:40 98.2 F 86 20 110/70 Intake and Output 08/25/17 08/26/17 08/26/17 23:59 07:59 15:59 Intake Total 600 480 240 Balance 600 480 240 Intake: Oral 600 480 240 Other: Total, Intake Amount 240 240 240 Voiding Method Toilet # Voids Void 1 1 1 - Exam Breasts: Present: deferred Cardiovascular: Present: Regular rate, Normal S1, Normal S2, No murmurs Lungs: Present: Clear to auscultation Abdomen: Present: normal appearance, soft, normal bowel sounds. Absent: distention, tenderness, guarding, rigidity Uterus: Present: normal, firm, fundal height below umbilicus. Absent: bogginess , tenderness Extremities: Present: normal. Absent: tenderness, edema
--- NOTE | 2017-08-26 10:08 | Discharge Summary ---
Providers - Providers Date of Admission: 08/24/17 03:12 Date of discharge: 08/26/17 Attending physician: KARY MOULTON MD None Primary care physician: KARY MOULTON MD Hospitalization Reason for admission: active labor Delivery: Episiotomy: none Laceration: 1st degree complications: none Discharge diagnosis: IUP at term delivered [place] baby: female Pertinent studies: Labs Hospital course: Normal hospital course. Condition at discharge: Good Disposition: DC-01 TO HOME OR SELFCARE - Discharge Diagnoses (1) Term delivered Status: Acute Plan - Provider Discharge Summary Activity: routine, no sex for 6 weeks, no heavy lifting 4 weeks, no strenuous exercise Diet: routine Instructions: routine Additional instructions: Call your doctor immediately for: * Fever > 100.5 * Heavy vaginal bleeding ( >1 pad per hour) * Severe persistent headache * Shortness of breath * Reddened, hot, painful area to leg or breast - Follow up plan Follow up: KARY MOULTON MD [Primary Care Provider] - 6 Weeks
[2017-08-26] MEDS: FEOSOL PO SCH (10:22)
[2017-08-26] MEDS: TUCKS PAD TP PRN (17:10)
[2017-08-26 20:30] VITALS: BP 108/64
== END 2017-08-26 20:28 | disposition home or self-care (01) | DRG 775 ==
LOC: TRG 01:56 → LD 03:12 → OB 14:20
PROVIDERS: ADMIT Obstetrics & Gynecology; ATTEND Obstetrics & Gynecology
PROC: 10E0XZZ Delivery of Products of Conception, External Approach (ICD-10-PCS; principal; 2017-08-24)
PROC: 3E0R3BZ Introduction of Anesthetic Agent into Spinal Canal, Percutaneous Approach (ICD-10-PCS; 2017-08-24)
PROC: 10907ZC Drainage of Amniotic Fluid, Therapeutic from Products of Conception, Via Natural or Artificial Opening (ICD-10-PCS; 2017-08-24)
PROC: 00HU33Z Insertion of Infusion Device into Spinal Canal, Percutaneous Approach (ICD-10-PCS; 2017-08-24)
PROC: 0HQ9XZZ Repair Perineum Skin, External Approach (ICD-10-PCS; 2017-08-24)
DX: O77.0 Labor and delivery complicated by meconium in amniotic fluid (principal); Z68.41 Body mass index [BMI] 40.0-44.9, adult; O76 Abnormality in fetal heart rate and rhythm complicating labor and delivery; O99.824 Streptococcus B carrier state complicating childbirth; E66.01 Morbid (severe) obesity due to excess calories; O99.214 Obesity complicating childbirth; Z3A.40 40 weeks gestation of pregnancy; O70.0 First degree perineal laceration during delivery; Z37.0 Single live birth
CPT/HCPCS: 36415; 85014; 85018; 85027; 86850; 86900; 86901; 88307; 99211; A6250; G0463; J0290; J0595; J2590; J7030; J7120

== ENCOUNTER 2021-08-31 09:52 | Emergency (ER) | payer MEDICAID ==
--- NOTE | 2021-08-31 11:55 | Emergency Department Report ---
<CAROL NOWAK - Last Filed: 08/31/21 16:04> ED General Adult HPI - General Chief complaint: Chest Pain Stated complaint: CHEST PAIN Time Seen by Provider: 08/31/21 10:14 Source: patient Mode of arrival: Ambulatory Limitations: No Limitations - History of Present Illness Severity scale (0 -10): 10 - Related Data Home Medications Medication Instructions Recorded Confirmed Last Taken Valacyclovir HCl [Valtrex] 1,000 mg PO QDAY 08/24/17 08/31/21 2 Days Ago ~08/22/17 Ferrous Sulfate [Feosol] 325 mg PO QDAY 08/31/21 08/31/21 08/30/21 Vitamin D3 1 tab PO QWEEK 08/31/21 08/31/21 1 Week Ago ~08/24/21 Previous Rx's Medication Instructions Recorded Last Taken Type Vit Calc,Iron,Folic 1 each PO DAILY #30 tablet 01/25/17 08/30/21 Rx [ Vitamins] Allergies Allergy/AdvReac Type Severity Reaction Status Date / Time No Known Allergies Allergy Verified 08/31/21 10:00 ED Past Medical Hx - Past Medical History Hx Hypertension: No (Preeclampsia) Hx Congestive Heart Failure: No Hx Diabetes: No Hx Deep Vein Thrombosis: No Hx Renal Disease: No Hx Sickle Cell Disease: No Hx Seizures: No Hx Psychiatric Treatment: Yes (Anxiety attacks) Hx Asthma: No Hx HIV: No Additional medical history: heart palpitations. ECTOPIC - Surgical History Additional Surgical History: ectopic - Social History Smoking Status: Never Smoker - Medications Home Medications: Home Medications Medication Instructions Recorded Confirmed Last Taken Type Vit Calc,Iron,Folic 1 each PO DAILY #30 tablet 01/25/17 08/31/21 08/30/21 Rx [ Vitamins] Valacyclovir HCl [Valtrex] 1,000 mg PO QDAY 08/24/17 08/31/21 2 Days Ago History ~08/22/17 Ferrous Sulfate [Feosol] 325 mg PO QDAY 08/31/21 08/31/21 08/30/21 History Vitamin D3 1 tab PO QWEEK 08/31/21 08/31/21 1 Week Ago History ~08/24/21 ED Physical Exam - General Limitations: No Limitations ED Medical Decision Making - Lab Data Result diagrams: 08/31/21 12:43 08/31/21 12:43 Lab Results 08/31/21 08/31/21 08/31/21 Range/Units 12:43 12:43 12:50 WBC 6.2 (4.5-11.0) K/mm3 RBC 3.43 L (3.65-5.03) M/mm3 Hgb 10.0 L (10.1-14.3) gm/dl Hct 30.8 (30.3-42.9) % MCV 90 (79-97) fl MCH 29 (28-32) pg MCHC 32 (30-34) % RDW 16.4 H (13.2-15.2) % Plt Count 137 L (140-440) K/mm3 Lymph % (Auto) 25.8 (13.4-35.0) % [place] % (Auto) 13.1 H (0.0-7.3) % Eos % (Auto) 1.4 (0.0-4.3) % Baso % (Auto) 0.2 (0.0-1.8) % Lymph # (Auto) 1.6 (1.2-5.4) K/mm3 [place] # (Auto) 0.8 (0.0-0.8) K/mm3 Eos # (Auto) 0.1 (0.0-0.4) K/mm3 Baso # (Auto) 0.0 (0.0-0.1) K/mm3 Seg Neutrophils % 59.5 (40.0-70.0) % Seg Neutrophils # 3.7 (1.8-7.7) K/mm3 PT 13.5 (12.2-14.9) Sec. INR 0.93 (0.87-1.13) APTT 28.0 (24.2-36.6) Sec. Sodium 138 (137-145) mmol/L Potassium 4.0 (3.6-5.0) mmol/L Chloride 104.3 (98-107) mmol/L Carbon Dioxide 21 L (22-30) mmol/L Anion Gap 17 mmol/L BUN 5 L (7-17) mg/dL Creatinine 0.5 L (0.6-1.2) mg/dL Estimated GFR > 60 ml/min BUN/Creatinine Ratio 10 % Glucose 78 (65-100) mg/dL Calcium 8.5 (8.4-10.2) mg/dL Total Bilirubin 0.20 (0.1-1.2) mg/dL AST 13 (5-40) units/L ALT 13 (7-56) units/L Alkaline Phosphatase 71 (35-129) units/L Troponin T < 0.010 (0.00-0.029) ng/mL Total Protein 6.4 (6.3-8.2) g/dL Albumin 3.4 L (3.9-5) g/dL Albumin/Globulin Ratio 1.1 % 08/31/21 Range/Units 15:22 WBC (4.5-11.0) K/mm3 RBC (3.65-5.03) M/mm3 Hgb (10.1-14.3) gm/dl Hct (30.3-42.9) % MCV (79-97) fl MCH (28-32) pg MCHC (30-34) % RDW (13.2-15.2) % Plt Count (140-440) K/mm3 Lymph % (Auto) (13.4-35.0) % [place] % (Auto) (0.0-7.3) % Eos % (Auto) (0.0-4.3) % Baso % (Auto) (0.0-1.8) % Lymph # (Auto) (1.2-5.4) K/mm3 [place] # (Auto) (0.0-0.8) K/mm3 Eos # (Auto) (0.0-0.4) K/mm3 Baso # (Auto) (0.0-0.1) K/mm3 Seg Neutrophils % (40.0-70.0) % Seg Neutrophils # (1.8-7.7) K/mm3 PT (12.2-14.9) Sec. INR (0.87-1.13) APTT (24.2-36.6) Sec. Sodium (137-145) mmol/L Potassium (3.6-5.0) mmol/L Chloride (98-107) mmol/L Carbon Dioxide (22-30) mmol/L Anion Gap mmol/L BUN (7-17) mg/dL Creatinine (0.6-1.2) mg/dL Estimated GFR ml/min BUN/Creatinine Ratio % Glucose (65-100) mg/dL Calcium (8.4-10.2) mg/dL Total Bilirubin (0.1-1.2) mg/dL AST (5-40) units/L ALT (7-56) units/L Alkaline Phosphatase (35-129) units/L Troponin T < 0.010 (0.00-0.029) ng/mL Total Protein (6.3-8.2) g/dL Albumin (3.9-5) g/dL Albumin/Globulin Ratio % - Radiology Data Radiology results: report reviewed CT chest with contrast INDICATION : Chest pain, shortness of breath. TECHNIQUE: 100 mL of intravenous contrast administered. All CT scans at this location are performed using CT dose reduction for ALARA by means of automated exposure con trol. COMPARISON: Radiograph performed earlier the same day. FINDINGS: There is suboptimal opacification of the pulmonary arteries which limits evaluation for embolism. Within these limitations, there is no evidence of filling defect within the central or proximal lobar branches to suggest the presence of pulmonary embolism. Evaluation of the more distal branches is limited on this exam. Lungs are clear without evidence of focal pulmonary consolidation or edema. No discrete pulmonary mass or nodule. No pleural effusion or pneumothorax. Heart is within normal limits in terms of size. No evidence of pericardial effusion. No mediastinal or axillary lymphadenopathy. Osseous structures show no evidence acute fracture or aggressive osseous destructive lesion. Limited evaluation of the upper abdomen is unremarkable. IMPRESSION: No acute findings within the chest. Evaluation for pulmonary embolism is limited due to suboptimal opacification of the pulmonary arteries. However, there is no evidence of pulmonary embolism within the central and proximal lobar branches. ED Disposition Clinical Impression: Pleuritic chest pain, Cervical radiculopathy Disposition: HOME / SELF CARE / HOMELESS Condition: Stable Instructions: Cervical Radiculopathy, Nonspecific Chest Pain, Adult, Pleurisy, Chest Wall Pain Additional Instructions: return if worse Referrals: PRIMARY CARE, [Primary Care Provider] - 3-5 Days CODY ROMERO MD [Staff Physician] - 3-5 Days <MITUL HERRERA - Last Filed: 08/31/21 16:19> ED General Adult HPI - History of Present Illness Initial comments: Patient presents to the emergency department with a chief complaint of chest pain shortness of breath that started at 8 AM this morning.. Patient is G5, P3 with a history of 1 ectopic who states she is 31 weeks . Patient states she has had right-sided chest pain as described as pressure-like in nature with numbness running into her right arm. Patient was evaluated by labor and delivery and cleared and sent to the emergency department for evaluation. Patient states she does suffer from carpal tunnel syndrome secondary to the . She denies any vaginal bleeding or discharge also denies contractions. -: Sudden Location: chest Radiation: non-radiation Severity scale (0 -10): 6 Quality: other (Pressure-like) Consistency: constant Improves with: none Worsens with: none Associated Symptoms: denies other symptoms Treatments Prior to Arrival: none ED Review of Systems ROS: Stated complaint: CHEST PAIN Other details as noted in HPI Comment: All other systems reviewed and negative Constitutional: denies: chills, fever Eyes: denies: eye pain, eye discharge, vision change ENT: denies: ear pain, throat pain Respiratory: denies: cough, shortness of breath, wheezing Cardiovascular: chest pain. denies: palpitations Endocrine: no symptoms reported Gastrointestinal: denies: abdominal pain, nausea, diarrhea Genitourinary: denies: urgency, dysuria, discharge Musculoskeletal: denies: back pain, joint swelling, arthralgia Skin: denies: rash, lesions Neurological: denies: headache, weakness, paresthesias Psychiatric: denies: anxiety, depression Hematological/Lymphatic: denies: easy bleeding, easy bruising ED Physical Exam - General General appearance: alert, in no apparent distress - Head Head exam: Present: atraumatic, normocephalic - Eye Eye exam: Present: normal appearance, PERRL, EOMI - ENT ENT exam: Present: mucous membranes moist - Neck Neck exam: Present: other (Able to recreate symptoms of the right upper extremity with tapping of the C-spine at C5 and 6) - Respiratory Respiratory exam: Present: normal lung sounds bilaterally, other. Absent: respi ratory distress - Cardiovascular Cardiovascular Exam: Present: normal rhythm, tachycardia. Absent: systolic murmur, diastolic murmur, rubs, gallop - GI/Abdominal GI/Abdominal exam: Present: soft, normal bowel sounds. Absent: distended, tenderness - Extremities Exam Extremities exam: Present: normal inspection - Back Exam Back exam: Present: normal inspection - Neurological Exam Neurological exam: Present: alert, oriented X3, CN II-XII intact. Absent: motor sensory deficit - Psychiatric Psychiatric exam: Present: normal affect, normal mood - Skin Skin exam: Present: warm, dry, intact, normal color. Absent: rash ED Course Vital Signs 08/31/21 08/31/21 08/31/21 10:01 14:05 14:06 Temperature 98.7 F Pulse Rate 103 H 89 Respiratory 16 16 Rate Blood Pressure 107/63 104/63 [Left] O2 Sat by Pulse 99 100 98 Oximetry ED Medical Decision Making - Lab Data Result diagrams: 08/31/21 12:43 08/31/21 12:43 - EKG Data -: EKG Interpreted by Me EKG shows normal: sinus rhythm Rate: normal - Radiology Data Radiology results: report reviewed Discussed results with patient - Medical Decision Making Discussed results with patient Critical care attestation.: If time is entered above; I have spent that time in minutes in the direct care of this critically ill patient, excluding procedure time. ED Disposition Is pt being admited?: No Does the pt Need Aspirin: No Time of Disposition: 16:16
--- NOTE | 2021-08-31 12:36 | XRay Report ---
CHEST 2 VIEWS INDICATION / CLINICAL INFORMATION: right sided chest pain. COMPARISON: None available. FINDINGS: SUPPORT DEVICES: None. HEART / MEDIASTINUM: No significant abnormality. LUNGS / PLEURA: No significant pulmonary or pleural abnormality. No pneumothorax. ADDITIONAL FINDINGS: No significant additional findings. IMPRESSION: 1. No acute findings. Signer Name: Blayne Martinez MD Signed: 08/31/2021 12:21 PM Workstation Name: [id number]
[2021-08-31 13:19] LABS: INR 0.93 (0.87-1.13)
[2021-08-31 13:19] LABS: Basophils % (Auto) 0.2 % (0.0-1.8); Eosinophils # (Auto) 0.1 K/mm3 (0.0-0.4); Eosinophils % (Auto) 1.4 % (0.0-4.3); Hematocrit 30.8 % (30.3-42.9); Lymphocytes # (Auto) 1.6 K/mm3 (1.2-5.4); Lymphocytes % (Auto) 25.8 % (13.4-35.0); Mean Corpuscular HGB Conc 32 % (30-34); Mean Corpuscular Volume 90 fl (79-97); Monocytes # (Auto) 0.8 K/mm3 (0.0-0.8); Monocytes % (Auto) 13.1 % (0.0-7.3); Platelet Count 137 K/mm3 (140-440); Red Blood Count 3.43 M/mm3 (3.65-5.03); Red Cell Distribution Width 16.4 % (13.2-15.2)
[2021-08-31 13:37] LABS: Alanine Aminotransferase 13 units/L (7-56); Albumin 3.4 g/dL (3.9-5); Blood Urea Nitrogen 5 mg/dL (7-17); Calcium 8.5 mg/dL (8.4-10.2); Hemolysis Index 28
[2021-08-31 13:44] LABS: BUN/Creatinine Ratio 10
--- NOTE | 2021-08-31 15:54 | Cat Scan Report ---
CT chest with contrast INDICATION : Chest pain, shortness of breath. TECHNIQUE: 100 mL of intravenous contrast administered. All CT scans at this location are performed using CT dose reduction for ALARA by means of automated exposure control. COMPARISON: Radiograph performed earlier the same day. FINDINGS: There is suboptimal opacification of the pulmonary arteries which limits evaluation for embolism. Wit hin these limitations, there is no evidence of filling defect within the central or proximal lobar br anches to suggest the presence of pulmonary embolism. Evaluation of the more distal branches is limit ed on this exam. Lungs are clear without evidence of focal pulmonary consolidation or edema. No discrete pulmonary mas s or nodule. No pleural effusion or pneumothorax. Heart is within normal limits in terms of size. No evidence of pericardial effusion. No mediastinal o r axillary lymphadenopathy. Osseous structures show no evidence acute fracture or aggressive osseous destructive lesion. Limited evaluation of the upper abdomen is unremarkable. IMPRESSION: No acute findings within the chest. Evaluation for pulmonary embolism is limited due to suboptimal op acification of the pulmonary arteries. However, there is no evidence of pulmonary embolism within the central and proximal lobar branches. Signer Name: Blayne Martinez MD Signed: 08/31/2021 3:50 PM Workstation Name: [id number]
[2021-08-31 17:15] VITALS: BP 170/56
--- NOTE | 2021-09-01 17:36 | Electrocardiograph Report ---
[facility] Test Date: 2021-08-31 Test Time: 10:09:19 Pat Name: LYN FARFAN Department: Room: Gender: F [employer] Consultant: TV : 1985 Requested By: MITUL HERRERA Order Number: [id number] Reading MD: Meagan Pittman Measurements Intervals [place] Rate: 85 P: 139 MI: 156 QRS: 168 QRSD: 86 T: 143 QT: 367 QTc: 437 Interpretive Statements Right and left arm electrode reversal, interpretation assumes no reversal Sinus or ectopic atrial rhythm Right axis deviation Nonspecific T wave abnormality No previous ECG available for comparison Electronically Signed On 09-01-2021 17:35:46 EDT by Meagan Pittman
== END 2021-08-31 17:14 | disposition home or self-care (01) ==
LOC: ED 09:52
DX: R07.81 Pleurodynia (principal); M54.12 Radiculopathy, cervical region; F41.9 Anxiety disorder, unspecified; Z79.899 Other long term (current) drug therapy
CPT/HCPCS: 36415; 71046; 71275; 80053; 84484; 85025; 85610; 85730; 93005; 99284; Q9967

== ENCOUNTER 2021-10-17 20:15 | Outpatient (CLI) | payer MEDICAID ==
[2021-10-17 20:31] VITALS: BP 117/59
[2021-10-17] MEDS ORDERED: LACTATED RINGERS 1,000 ML IV ONE (22:00)
[2021-10-17 22:26] LABS: Bacteria,Urine 1+ /HPF (Negative); Bilirubin,Urine NEG (Negative); Blood,Urine SM (Negative); Color,Urine Yellow (Yellow); Mucus,Urine FEW /HPF
[2021-10-17 22:32] LABS: Amphetamine Screen,Urine Negative; Benzodiazepines Screen,Urine Negative; Cannabinoid Screen,Urine Negative; Cocaine Screen,Urine Negative; Opiate Screen,Urine Negative
[2021-10-17 22:53] LABS: Methadone Screen,Urine PRESUMPTIVE NEGATIVE
--- NOTE | 2021-10-17 22:57 | Ultrasound Report ---
US OB BPP wo non-stress, US OB follow up INDICATION / CLINICAL INFORMATION: BPP. COMPARISON: None available. FINDINGS: Single live intrauterine . measurements correspond to an ultrasound gestatio nal age of 38 weeks and 2 days. Estimated weight is 3555 g. BREATHING MOVEMENT = 2 GROSS BODY MOVEMENT = 2 TONE = 2 QUALITATIVE AMNIOTIC FLUID VOLUME = 2 TOTAL BIOPHYSICAL SCORE = 8/8 AMNIOTIC FLUID INDEX (cm) = 11.5 PRESENTATION: Cephalic. HEART RATE (beats per minute): 152 Additional findings: Posterior fundal placenta is free of the os. No evidence of abruption. IMPRESSION: 1. Single live intrauterine , as detailed above. 2. biophysical profile = 8/8 3. No significant abnormality. Signer Name: Devin Polk MD Signed: 10/17/2021 10:53 PM Workstation Name: [id number]
[2021-10-17] MEDS ORDERED: cefTRIAXone/NS 1 GM/50 ML 1 GM/50 ML BAG IV SCH (23:45)
== END 2021-10-18 00:20 | disposition still patient (30) ==
LOC: TRG 20:15 → APU 20:24 → TRG 10-18 00:20
PROVIDERS: ATTEND Obstetrics & Gynecology
DX: O26.893 Other specified pregnancy related conditions, third trimester (principal); K62.5 Hemorrhage of anus and rectum; O99.013 Anemia complicating pregnancy, third trimester; O13.3 Gestational [pregnancy-induced] hypertension without significant proteinuria, third trimester; O99.213 Obesity complicating pregnancy, third trimester; O99.343 Other mental disorders complicating pregnancy, third trimester; F41.9 Anxiety disorder, unspecified; Z3A.38 38 weeks gestation of pregnancy; Z87.891 Personal history of nicotine dependence
CPT/HCPCS: 59025; 76816; 76819; 80307; 81001; 96361; 96365; 96366; J0696; J7120; 96360

== ENCOUNTER 2021-10-18 01:10 | Emergency (ER) | payer MEDICAID ==
[2021-10-18 01:21] VITALS: BP 120/64
== END 2021-10-18 04:47 | disposition home or self-care (01) ==
LOC: ED 01:10
DX: O22.43 Hemorrhoids in pregnancy, third trimester (principal); O99.343 Other mental disorders complicating pregnancy, third trimester; F41.9 Anxiety disorder, unspecified; Z3A.37 37 weeks gestation of pregnancy; Z53.21 Procedure and treatment not carried out due to patient leaving prior to being seen by health care provider; Z79.899 Other long term (current) drug therapy
CPT/HCPCS: 59025; 76816; 76819; 80307; 81001; 96361; 96365; 96366; J0696; J7120; 96360; 99282